=== PATIENT | male | born 1955 | race Caucasian/White ===

== ENCOUNTER → 2023-09-04 | Outpatient (CLI) | payer MEDICARE, OTHER, SELFPAY ==
[2023-09-04 17:58] LABS: Erythrocyte Sedimentation Rate 6 mm/hr (0-20)
[2023-09-04 18:06] LABS: Sodium Level 137 mmol/L (136-145)
[2023-09-06 12:09] LABS: ANTINUCLEAR ANTIBODIES DIRECT Negative (Negative)
[2023-09-08 06:08] LABS: Complement C3 112 mg/dL (82-167); Complement CH50 > 60 U/mL (>41); Dilute Russell Viper Venom 44.5 sec (0.0-47.0); Interpretation Comment: (.); PTT-LA 33.8 sec (0.0-43.5); Trileptal-Oxcarbazepine 22 ug/mL (10-35); dPT Confirm Ratio 1.56 Ratio (0.00-1.34)
== END | disposition home or self-care (01) ==
PROVIDERS: PCP Student in an Organized Health Care Education/Training Program; Referring Provider Psychiatry & Neurology Neurology; Visit Provider Psychiatry & Neurology Neurology
DX: I63.9 Cerebral infarction, unspecified (principal); G40.909 Epilepsy, unspecified, not intractable, without status epilepticus
CPT/HCPCS: 36415; 82542; 84295; 85652; 86038; 86160; 86162; 86225; 86235

== ENCOUNTER → 2024-01-01 | Outpatient (CLI) | payer MEDICARE, OTHER, SELFPAY ==
--- NOTE | 2024-01-01 16:35 | RAD_ITS ---
STUDY: X-RAY - LEFT SHOULDER REASON FOR EXAM: Male, 68 years old. Left shoulder pain. TECHNIQUE: 4 views of the left shoulder. COMPARISON: None. FINDINGS: There is minimal glenohumeral arthrosis. There is minimal acromioclavicular arthrosis. Normal acromion. Intact humeral head and visualized proximal humerus. The soft tissue structures are unremarkable. There is no demonstrated fracture. Normal visualized pulmonary apex. RAD/Shoulder min 2 Views IMPRESSION: Minimal glenohumeral arthrosis and minimal acromioclavicular arthrosis. Electronically Signed: Jorge Luis Bryan MD at 12:03 EDT ,
[2024-01-08 10:07] LABS: Trileptal-Oxcarbazepine 20 ug/mL (10-35)
== END | disposition home or self-care (01) ==
PROVIDERS: PCP Student in an Organized Health Care Education/Training Program; Referring Provider Psychiatry & Neurology Neurology; Visit Provider Psychiatry & Neurology Neurology
DX: M25.512 Pain in left shoulder (principal); G40.909 Epilepsy, unspecified, not intractable, without status epilepticus
CPT/HCPCS: 36415; 73030; 82542

== ENCOUNTER → 2024-05-06 | Outpatient (CLI) | payer MEDICARE, OTHER, SELFPAY ==
[2024-05-06 17:58] LABS: Hematocrit 38.6 % (40-54); Hemoglobin 13.8 g/dL (13.0-16.5); Mean Corp Hgb Conc 35.8 g/dL (32-36); Mean Corpuscular Hgb 34.9 pg (27.0-32.0); Mean Corpuscular Volume 97.7 fL (80-94); Mean Platelet Vol. 8.7 fl (6.2-12.0); Platelet Count 278 K/mm3 (150-450); RBC Distribution Width CV 11.5 % (11.6-14.6); RBC Distribution Width SD 41.5 fl (35.1-43.9); Red Blood Count 3.95 M/mm3 (4.6-6.2); White Blood Count 7.2 K/mm3 (4.4-11.0)
[2024-05-06 18:13] LABS: Vitamin B12 468 pg/mL (211-911)
[2024-05-06 18:55] LABS: ALB/GLOB Ratio 1.3 RATIO (0.9-2.4); AST(SGOT) 13 U/L (15-37); Alanine Aminotransfer ALT/SGPT 25 U/L (16-61); Alkaline Phosphatase 73 U/L (45-117); Anion Gap 10 (5-15); BUN 20 mg/dL (7-18); BUN/Creat Ratio 26.3 RATIO (10-20); Calcium,Total 9.2 mg/dL (8.5-10.1); Chloride 97 mmol/L (98-107); Creatinine, Serum 0.76 mg/dL (0.70-1.30); EST Glomerular Filtration Rate 109 mL/min (>60); Est Glom Filt Rate - Afr Amer 131 mL/min (>60); Glucose 108 mg/dL (74-106); Potassium 3.7 mmol/L (3.5-5.1); Sodium Level 130 mmol/L (136-145); Thyroid Stim Hormone (TSH) 0.35 uIU/mL (0.358-3.74)
[2024-05-09 17:08] LABS: Vitamin B1, Thiamine 279.5 nmol/L (66.5-200.0)
== END | disposition home or self-care (01) ==
LOC: MTLAB 16:16
PROVIDERS: PCP Student in an Organized Health Care Education/Training Program; Referring Provider Psychiatry & Neurology Neurology; Visit Provider Psychiatry & Neurology Neurology
DX: G40.909 Epilepsy, unspecified, not intractable, without status epilepticus (principal); I63.9 Cerebral infarction, unspecified; R53.83 Other fatigue
CPT/HCPCS: 36415; 80053; 82140; 82607; 82746; 83735; 84425; 84443; 85027

== ENCOUNTER → 2024-07-02 | Outpatient (CLI) | payer MEDICARE, OTHER, SELFPAY ==
[2024-07-05 05:07] LABS: Dilute Prothrombin Time (dPT) 41.2 sec (0.0-47.6); Dilute Russell Viper Venom 35.6 sec (0.0-47.0); Interpretation Comment: (.); PTT-LA 32.4 sec (0.0-43.5)
== END | disposition home or self-care (01) ==
LOC: MTLAB 14:09
PROVIDERS: PCP Student in an Organized Health Care Education/Training Program; Referring Provider Psychiatry & Neurology Neurology; Visit Provider Psychiatry & Neurology Neurology
DX: I63.9 Cerebral infarction, unspecified (principal)
CPT/HCPCS: 36415

== ENCOUNTER → 2024-10-04 | Outpatient (CLI) | payer MEDICARE, OTHER, SELFPAY | END | disposition home or self-care (01) | LOC: SL 19:54 | PROVIDERS: PCP Student in an Organized Health Care Education/Training Program; Referring Provider Psychiatry & Neurology Neurology; Visit Provider Psychiatry & Neurology Neurology | DX: G47.10 Hypersomnia, unspecified (principal) | CPT/HCPCS: 95810 ==

== ENCOUNTER → 2025-02-18 | Outpatient (CLI) | payer MEDICARE, OTHER, SELFPAY ==
[2025-02-18 18:00] LABS: Hematocrit 40.6 % (40-54); Hemoglobin 14.2 g/dL (13.0-16.5); Mean Corpuscular Hgb 33.6 pg (27.0-32.0); Mean Platelet Vol. 9.8 fl (6.2-12.0); Platelet Count 284 K/mm3 (150-450); RBC Distribution Width CV 11.7 % (11.6-14.6); RBC Distribution Width SD 41.1 fl (35.1-43.9); Red Blood Count 4.23 M/mm3 (4.6-6.2); White Blood Count 6.8 K/mm3 (4.4-11.0)
[2025-02-18 18:24] LABS: Thyroid Stim Hormone (TSH) 0.882 uIU/mL (0.300-4.200)
[2025-02-18 18:36] LABS: ALB/GLOB Ratio 1.9 RATIO (0.9-2.4); AST(SGOT) 17 U/L (<=37); Alanine Aminotransfer ALT/SGPT 12 U/L (<=46); Albumin, Serum 4.4 g/dL (3.4-4.8); Alkaline Phosphatase 56 U/L (40-129); Anion Gap 10 (5-15); BUN 17 mg/dL (4-19); BUN/Creat Ratio 21.1 RATIO (10-20); Calcium,Total 9.6 mg/dL (7.6-11.0); Carbon Dioxide 24.8 mmol/L (21.0-32.0); Chloride 98 mmol/L (98-108); EST Glomerular Filtration Rate 97 (>60); Globulin 2.3 g/dL (2.2-4.2); Glucose 88 mg/dL (70-99); Potassium 4.4 mmol/L (3.3-5.1); Protein, Total 6.7 g/dL (5.9-8.4); Sodium Level 132 mmol/L (133-145); Total Bilirubin < 0.15 mg/dL (0.00-1.30)
[2025-02-23 16:08] LABS: Trileptal-Oxcarbazepine 23 ug/mL (10-35)
== END | disposition home or self-care (01) ==
LOC: MTLAB 15:06
PROVIDERS: PCP Student in an Organized Health Care Education/Training Program; Referring Provider Psychiatry & Neurology Neurology; Visit Provider Psychiatry & Neurology Neurology
DX: G40.909 Epilepsy, unspecified, not intractable, without status epilepticus (principal); I10 Essential (primary) hypertension
CPT/HCPCS: 36415; 80053; 82542; 84443; 85027

== ENCOUNTER → 2025-08-14 | Outpatient (CLI) | payer MEDICARE, OTHER, SELFPAY ==
[2025-08-14 15:14] LABS: Hematocrit 44.0 % (40-54); Hemoglobin 15.2 g/dL (13.0-16.5); Mean Corp Hgb Conc 34.5 g/dL (32-36); Mean Corpuscular Volume 96.1 fL (80-94); Mean Platelet Vol. 9.4 fl (6.2-12.0); Platelet Count 263 K/mm3 (150-450); RBC Distribution Width CV 11.4 % (11.6-14.6); RBC Distribution Width SD 40.6 fl (35.1-43.9); Red Blood Count 4.58 M/mm3 (4.6-6.2); White Blood Count 7.3 K/mm3 (4.4-11.0)
[2025-08-14 15:30] LABS: AST(SGOT) 19 U/L (<=37); Alanine Aminotransfer ALT/SGPT 13 U/L (<=46); Albumin, Serum 4.4 g/dL (3.4-4.8); Alkaline Phosphatase 64 U/L (40-129); Anion Gap 9 (5-15); BUN 16 mg/dL (4-19); BUN/Creat Ratio 24.2 RATIO (10-20); Calcium,Total 9.3 mg/dL (7.6-11.0); Carbon Dioxide 25.8 mmol/L (21.0-32.0); Chloride 100 mmol/L (98-108); Globulin 2.2 g/dL (2.2-4.2); Glucose 84 mg/dL (70-99); Potassium 4.3 mmol/L (3.3-5.1)
[2025-08-20 01:07] LABS: Trileptal-Oxcarbazepine 26 ug/mL (10-35)
== END | disposition home or self-care (01) ==
LOC: MTLAB 12:51
PROVIDERS: PCP Student in an Organized Health Care Education/Training Program; Referring Provider Psychiatry & Neurology Neurology; Visit Provider Psychiatry & Neurology Neurology
DX: G40.909 Epilepsy, unspecified, not intractable, without status epilepticus (principal)
CPT/HCPCS: 36415; 80053; 82542; 85027